=== PATIENT | female | born 1970 | race Caucasian/White ===

== ENCOUNTER 2016-10-18 08:23 | Emergency (ER) | payer OTHER ==
[~2016-10-18] VITALS: Ht 157.5 cm; Wt 126.3 kg
[~2016-10-18 08:23] MED LIST: CARVEDILOL3.125 M1 PO; HYDROCHLOROTHIA25 MG PO; LORAZEPAM0.5 MG PO; LOVASTATIN20 MG PO; METOPROLOL TART25 M1 PO; PRI20 PO; PRILOSEC20 MG PO; RANITIDINE HCL150 M1 PO; ZES10 PO; ZOC10 PO
[2016-10-18 10:22] LABS: UA SPECIFIC GRAVITY >=1.030 (1.005-1.035); microscopic required? YES; urine erythrocyte TRACE (NEGATIVE)
[2016-10-18 10:29] LABS: BASOPHIL % 0.4 % (0-2); PLATELET COUNT 310 x10^3mcL (130-400); RED CELL DISTRIBUTION WIDTH 14.1 % (11.5-14.5)
[2016-10-18 10:36] LABS: CALCIUM 8.7 mg/dL (8.5-10.1); CARBON DIOXIDE 27.6 mmol/L (21-32); CHLORIDE SERUM 103 mmol/L (98-107); GFR1 > 60 mL/min; GLUCOSE SERUM 88 mg/dL (74-106); SODIUM SERUM 135 mmol/L (136-145)
[2016-10-18 10:41] LABS: ALKALINE PHOSPHATASE 119 U/L (46-116); ALT/SGPT 21 U/L (14-59); AST/SGOT 18 U/L (15-37); BILIRUBIN TOTAL 0.3 mg/dL (0.20-1.00); TOTAL PROTEIN, SERUM 7.4 g/dL (6.4-8.2)
[2016-10-18 10:44] LABS: ALBUMIN 3.1 g/dL (3.4-5.0)
[2016-10-18 12:15] VITALS: BP 135/84
== END 2016-10-18 12:15 | disposition home or self-care (01) ==
LOC: ED 08:23
PROVIDERS: Emergency Medicine
DX: R11.10 Vomiting, unspecified (principal); R19.7 Diarrhea, unspecified; E11.9 Type 2 diabetes mellitus without complications; I10 Essential (primary) hypertension; E66.01 Morbid (severe) obesity due to excess calories; K43.9 Ventral hernia without obstruction or gangrene; E78.5 Hyperlipidemia, unspecified; M19.90 Unspecified osteoarthritis, unspecified site; J45.909 Unspecified asthma, uncomplicated; Z98.51 Tubal ligation status; Z88.0 Allergy status to penicillin; Z88.5 Allergy status to narcotic agent
CPT/HCPCS: 83880; J2270; J2405; J7030; Q0092

== ENCOUNTER 2017-08-27 10:05 | Emergency (ER) | payer OTHER ==
[~2017-08-27] VITALS: Ht 167.6 cm; Wt 130.6 kg
[2017-08-27 10:14] VITALS: Ht 167.6 cm; Wt 130.6 kg
[2017-08-27 11:19] VITALS: BP 130/74
[2017-08-27 11:23] LABS: CALCIUM 8.7 mg/dL (8.5-10.1); CARBON DIOXIDE 27.3 mmol/L (21-32); CHLORIDE SERUM 103 mmol/L (98-107); GFR1 > 60 mL/min; GLUCOSE SERUM 110 mg/dL (74-106); POTASSIUM SERUM 3.5 mmol/L (3.5-5.1); SODIUM SERUM 138 mmol/L (136-145)
== END 2017-08-27 11:56 | disposition home or self-care (01) ==
LOC: ED 10:05
PROVIDERS: Emergency Medicine
DX: K52.9 Noninfective gastroenteritis and colitis, unspecified (principal); I10 Essential (primary) hypertension; E11.9 Type 2 diabetes mellitus without complications; J45.909 Unspecified asthma, uncomplicated; E78.00 Pure hypercholesterolemia, unspecified; M19.90 Unspecified osteoarthritis, unspecified site; Z88.0 Allergy status to penicillin; Z88.5 Allergy status to narcotic agent; Z88.6 Allergy status to analgesic agent
CPT/HCPCS: J1885; Q0162

== ENCOUNTER 2018-01-23 06:48 | Inpatient (IN) | payer OTHER ==
[~2018-01-23] VITALS: Ht 157.5 cm; Wt 118.5 kg
[2018-01-23 06:54] VITALS: Ht 157.5 cm; Wt 118.5 kg
[2018-01-23 07:51] LABS: UA SPECIFIC GRAVITY 1.025 (1.005-1.035); microscopic required? YES; urine erythrocyte NEGATIVE (NEGATIVE)
[2018-01-23 08:08] LABS: BASOPHIL % 0.5 % (0-2); PLATELET COUNT 314 x10^3mcL (130-400)
[2018-01-23 08:27] LABS: CALCIUM 8.6 mg/dL (8.5-10.1); CARBON DIOXIDE 25.3 mmol/L (21-32); CHLORIDE SERUM 105 mmol/L (98-107); CREATININE SERUM 0.9 mg/dL (0.6-1.0); GFR1 > 60 mL/min; GLUCOSE SERUM 108 mg/dL (74-106); POTASSIUM SERUM 4.1 mmol/L (3.5-5.1); SODIUM SERUM 138 mmol/L (136-145)
[2018-01-23 08:32] LABS: ALBUMIN 3.3 g/dL (3.4-5.0); ALKALINE PHOSPHATASE 102 U/L (46-116); ALT/SGPT 21 U/L (14-59); AST/SGOT 21 U/L (15-37); BILIRUBIN TOTAL 0.36 mg/dL (0.20-1.00); TOTAL PROTEIN, SERUM 7.4 g/dL (6.4-8.2)
[2018-01-23] MEDS ORDERED: SYNTHROID0.112 MG PO (09:01)
[2018-01-23] MEDS ORDERED: NEURONTIN100 MG PO (09:04)
[2018-01-23] MEDS ORDERED: GOOD SENSE ASPI81 M3 PO (09:05)
[2018-01-23] MEDS ORDERED: LOMOTIL1 TAB PO (09:06)
[2018-01-23] MEDS ORDERED: GOOD SENSE OMEP20 MG PO (09:07)
[2018-01-23] MEDS ORDERED: CARVEDILOL3.125 M1 PO (09:08)
[2018-01-23] MEDS ORDERED: GOOD NEIGHBOR150 M1 PO (09:09)
[2018-01-23 09:10] LABS: FREE T4 0.85 ng/dL (0.76-1.46)
[2018-01-23] MEDS ORDERED: VITAMIN-D1000 IU PO (09:11)
[2018-01-23] MEDS ORDERED: SIMVASTATIN40 M1 PO (09:11)
[2018-01-23] MEDS ORDERED: LORAZEPAM0.5 MG PO (09:13)
[2018-01-23] MEDS ORDERED: QVAR REDIHALE10.6 G1 (09:14)
[2018-01-23] MEDS ORDERED: TOPAMAX25 MG PO (09:14)
[2018-01-23 10:01] VITALS: BP 140/107
[2018-01-23 11:38] LABS: MAGNESIUM 1.9 mg/dL (1.8-2.4); PHOSPHOROUS 3.6 mg/dL (2.5-4.9)
[2018-01-23 11:49] LABS: FREE T4 0.88 ng/dL (0.76-1.46); FREE THYROXINE INDEX 2.5 ug/dL (1.4-4.5); T4(THYROXINE) 7.6 ug/dL (4.7-13.3)
[2018-01-23 11:50] LABS: T3 TOTAL 1.13 ng/mL
[2018-01-23 12:10] VITALS: BP 107/44
[2018-01-23 12:57] LABS: AMPHETAMINE QUAL UR NONE DETECTED (See below)
[2018-01-23] MEDS ORDERED: JANUMET 50-1,01 EACH PO (15:13)
[2018-01-23 15:41] VITALS: BP 93/54
[2018-01-23 17:47] VITALS: BP 141/71
[2018-01-23 21:01] VITALS: BP 150/74
[2018-01-24 04:57] VITALS: BP 139/68
[2018-01-24 05:59] LABS: CHOLESTEROL/HDL RATIO 4.1
[2018-01-24 11:05] LABS: BASOPHIL % 0.6 % (0-2); PLATELET COUNT 303 x10^3mcL (130-400); RED CELL DISTRIBUTION WIDTH 14.5 % (11.5-14.5)
[2018-01-24 11:22] LABS: ALKALINE PHOSPHATASE 103 U/L (46-116); ALT/SGPT 20 U/L (14-59); AST/SGOT 21 U/L (15-37); BILIRUBIN TOTAL 0.37 mg/dL (0.20-1.00); CALCIUM 9.1 mg/dL (8.5-10.1); CARBON DIOXIDE 26.5 mmol/L (21-32); CHLORIDE SERUM 103 mmol/L (98-107); CREATININE SERUM 0.9 mg/dL (0.6-1.0); GFR1 > 60 mL/min; GLUCOSE SERUM 98 mg/dL (74-106); POTASSIUM SERUM 3.9 mmol/L (3.5-5.1); SODIUM SERUM 137 mmol/L (136-145); TOTAL PROTEIN, SERUM 7.9 g/dL (6.4-8.2)
[2018-01-24 11:23] LABS: ALBUMIN 3.2 g/dL (3.4-5.0)
[2018-01-24 12:39] VITALS: BP 162/93
[2018-01-24 15:33] VITALS: BP 119/69
[2018-01-24 17:05] VITALS: BP 119/69
== END 2018-01-24 18:23 | disposition short-term general hospital (02) | DRG 198 ==
LOC: ED 06:48 → DU 08:04 → IC 08:04 → DU 17:22 → IC 01-24 11:32
PROVIDERS: Emergency Medicine; Internal Medicine
DX: I24.9 Acute ischemic heart disease, unspecified (principal); E11.42 Type 2 diabetes mellitus with diabetic polyneuropathy; E03.9 Hypothyroidism, unspecified; I10 Essential (primary) hypertension; E11.65 Type 2 diabetes mellitus with hyperglycemia; E44.1 Mild protein-calorie malnutrition; E78.00 Pure hypercholesterolemia, unspecified; F41.9 Anxiety disorder, unspecified; N30.90 Cystitis, unspecified without hematuria; F32.9 Major depressive disorder, single episode, unspecified; I35.0 Nonrheumatic aortic (valve) stenosis; E66.01 Morbid (severe) obesity due to excess calories; J45.909 Unspecified asthma, uncomplicated; Z88.0 Allergy status to penicillin; Z88.6 Allergy status to analgesic agent; Z88.1 Allergy status to other antibiotic agents; Z88.8 Allergy status to other drugs, medicaments and biological substances; Z83.3 Family history of diabetes mellitus; Z82.49 Family history of ischemic heart disease and other diseases of the circulatory system; Z68.42 Body mass index [BMI] 45.0-49.9, adult; Z98.51 Tubal ligation status
CPT/HCPCS: 83880; 84439; A9500; J0696; J1327; J1644; J2405; J2785; J3010; J3490; J7030; Q0092

== ENCOUNTER 2018-03-15 15:01 | Emergency (ER) | payer OTHER ==
[~2018-03-15] VITALS: Ht 157.5 cm; Wt 117.9 kg
[~2018-03-15 15:01] MED LIST changes: +GOOD NEIGHBOR150 M1 PO; +GOOD SENSE ASPI81 M3 PO; +GOOD SENSE OMEP20 MG PO; +JANUMET 50-1,01 EACH PO; +LOMOTIL1 TAB PO; +NEURONTIN100 MG PO; +QVAR REDIHALE10.6 G1; +SIMVASTATIN40 M1 PO; +SYNTHROID0.112 MG PO; +TOPAMAX25 MG PO; +VITAMIN-D1000 IU PO
[2018-03-15 15:19] VITALS: Ht 157.5 cm; Wt 117.9 kg
[2018-03-15 16:58] LABS: CALCIUM 9.1 mg/dL (8.5-10.1); CARBON DIOXIDE 27.1 mmol/L (21-32); CHLORIDE SERUM 102 mmol/L (98-107); GFR1 > 60 mL/min; GLUCOSE SERUM 95 mg/dL (74-106); SODIUM SERUM 137 mmol/L (136-145)
[2018-03-15 17:02] LABS: BASOPHIL % 0.9 % (0-2); PLATELET COUNT 361 x10^3mcL (130-400)
[2018-03-15 17:04] LABS: ALBUMIN 3.4 g/dL (3.4-5.0); ALKALINE PHOSPHATASE 126 U/L (46-116); ALT/SGPT 13 U/L (14-59); AST/SGOT 18 U/L (15-37); BILIRUBIN TOTAL 0.31 mg/dL (0.20-1.00); LIPASE 132 IU/L (73-393)
[2018-03-15 18:42] VITALS: BP 142/60
== END 2018-03-15 18:42 | disposition home or self-care (01) ==
LOC: ED 15:01
PROVIDERS: Emergency Medicine
DX: K59.00 Constipation, unspecified (principal); J45.909 Unspecified asthma, uncomplicated; I10 Essential (primary) hypertension; E11.9 Type 2 diabetes mellitus without complications; E78.00 Pure hypercholesterolemia, unspecified; E03.9 Hypothyroidism, unspecified; M19.90 Unspecified osteoarthritis, unspecified site; Z88.0 Allergy status to penicillin; Z88.6 Allergy status to analgesic agent
CPT/HCPCS: 36415; Q9967

== ENCOUNTER 2018-10-23 16:18 | Inpatient (IN) | payer OTHER ==
[~2018-10-23] VITALS: Ht 157.5 cm; Wt 122.0 kg
[2018-10-23 16:28] VITALS: Ht 157.5 cm; Wt 122.0 kg
[2018-10-23] MEDS ORDERED: GOOD SENSE ASPI81 M3 (16:47)
[2018-10-23] MEDS ORDERED: CARVEDILOL3.125 M1 (16:47)
[2018-10-23] MEDS ORDERED: LEVOTHYROXIN0.025 M2 (16:48)
[2018-10-23] MEDS ORDERED: LOMOTIL1 TAB (16:48)
[2018-10-23] MEDS ORDERED: GABAPENTIN100 M2 (16:48)
[2018-10-23] MEDS ORDERED: ALBUTEROL0.63 MG/3 (16:49)
[2018-10-23] MEDS ORDERED: ENFAMIL D-V400 IU/ML (16:49)
[2018-10-23] MEDS ORDERED: METFORMIN HYDR500 M1 (16:49)
[2018-10-23] MEDS ORDERED: VENTOLIN H0.09 MG/A1 (16:49)
[2018-10-23] MEDS ORDERED: LORAZEPAM0.5 MG (16:49)
[2018-10-23] MEDS ORDERED: NITROGLYCERIN0.4 MG (16:50)
[2018-10-23 17:13] LABS: BASOPHIL % 0.6 % (0-2); PLATELET COUNT 293 x10^3mcL (130-400); RED CELL DISTRIBUTION WIDTH 13.7 % (11.5-14.5)
[2018-10-23 17:16] LABS: CARBON DIOXIDE 29.9 mmol/L (21-32); CREATININE SERUM 1.1 mg/dL (0.6-1.0); POTASSIUM SERUM 3.8 mmol/L (3.5-5.1)
[2018-10-23 17:21] LABS: ALBUMIN 3.1 g/dL (3.4-5.0); BILIRUBIN TOTAL 0.19 mg/dL (0.20-1.00); TOTAL PROTEIN, SERUM 7.3 g/dL (6.4-8.2)
[2018-10-23 19:08] LABS: CHOLESTEROL/HDL RATIO 3.7; MAGNESIUM 1.7 mg/dL (1.8-2.4); PHOSPHOROUS 4.5 mg/dL (2.5-4.9)
[2018-10-23 19:28] VITALS: BP 133/65
[2018-10-23 20:52] VITALS: BP 108/56
[2018-10-24 05:24] VITALS: BP 105/64
[2018-10-24 06:56] LABS: BASOPHIL % 0.7 % (0-2); PLATELET COUNT 267 x10^3mcL (130-400); RED CELL DISTRIBUTION WIDTH 13.9 % (11.5-14.5)
[2018-10-24 07:10] LABS: CHLORIDE SERUM 102 mmol/L (98-107); GFR1 > 60 mL/min; GLUCOSE SERUM 109 mg/dL (74-106); POTASSIUM SERUM 3.8 mmol/L (3.5-5.1); SODIUM SERUM 137 mmol/L (136-145)
[2018-10-24 08:17] VITALS: BP 104/63
[2018-10-24 11:40] VITALS: BP 114/61
[2018-10-24 16:12] VITALS: BP 118/75
[2018-10-24 16:35] VITALS: BP 118/75
[2018-10-24 20:52] LABS: microscopic required? YES; urine erythrocyte NEGATIVE (NEGATIVE)
[2018-10-24 21:04] LABS: AMPHETAMINE QUAL UR NONE DETECTED (See below)
== END 2018-10-24 18:13 | disposition home or self-care (01) | DRG 198 ==
LOC: ED 16:18 → DU 18:22 → MU 10-24 16:23
PROVIDERS: Emergency Medicine; ADMIT Internal Medicine
DX: I25.119 Atherosclerotic heart disease of native coronary artery with unspecified angina pectoris (principal); E44.1 Mild protein-calorie malnutrition; E66.01 Morbid (severe) obesity due to excess calories; Z68.42 Body mass index [BMI] 45.0-49.9, adult; E83.42 Hypomagnesemia; I10 Essential (primary) hypertension; E78.5 Hyperlipidemia, unspecified; E03.9 Hypothyroidism, unspecified; E78.00 Pure hypercholesterolemia, unspecified; M19.90 Unspecified osteoarthritis, unspecified site; K21.9 Gastro-esophageal reflux disease without esophagitis; I44.7 Left bundle-branch block, unspecified; E11.9 Type 2 diabetes mellitus without complications; J45.909 Unspecified asthma, uncomplicated; Z79.82 Long term (current) use of aspirin; Z79.84 Long term (current) use of oral hypoglycemic drugs; Z88.6 Allergy status to analgesic agent; Z88.0 Allergy status to penicillin; Z88.8 Allergy status to other drugs, medicaments and biological substances; Z88.5 Allergy status to narcotic agent; Z98.51 Tubal ligation status; Z82.49 Family history of ischemic heart disease and other diseases of the circulatory system; Z83.3 Family history of diabetes mellitus
CPT/HCPCS: 82962; 83880; J2270; J2405; Q0092

== ENCOUNTER 2018-10-30 18:20 | Emergency (ER) | payer OTHER ==
[~2018-10-30] VITALS: Ht 157.5 cm; Wt 117.6 kg
[~2018-10-30 18:20] MED LIST changes: +ALBUTEROL0.63 MG/3; +CARVEDILOL3.125 M1; +ENFAMIL D-V400 IU/ML; +GABAPENTIN100 M2; +GOOD SENSE ASPI81 M3; +LEVOTHYROXIN0.025 M2; +LOMOTIL1 TAB; +LORAZEPAM0.5 MG; +METFORMIN HYDR500 M1; +NITROGLYCERIN0.4 MG; +VENTOLIN H0.09 MG/A1
[2018-10-30 18:28] VITALS: Ht 157.5 cm; Wt 117.6 kg
[2018-10-30 20:32] VITALS: BP 117/68
== END 2018-10-30 20:32 | disposition home or self-care (01) ==
LOC: ED 18:20
DX: K59.00 Constipation, unspecified (principal); J45.909 Unspecified asthma, uncomplicated; I10 Essential (primary) hypertension; E11.9 Type 2 diabetes mellitus without complications; E78.00 Pure hypercholesterolemia, unspecified; E03.9 Hypothyroidism, unspecified; M19.90 Unspecified osteoarthritis, unspecified site; Z98.51 Tubal ligation status; Z88.5 Allergy status to narcotic agent; Z88.8 Allergy status to other drugs, medicaments and biological substances
CPT/HCPCS: J1885

== ENCOUNTER 2019-05-12 10:45 | Inpatient (IN) | payer OTHER ==
[~2019-05-12] VITALS: Ht 157.5 cm; Wt 118.8 kg
[2019-05-12 11:24] LABS: BASOPHIL % 0.9 % (0-2); PLATELET COUNT 295 x10^3mcL (130-400); RED CELL DISTRIBUTION WIDTH 13.9 % (11.5-14.5)
[2019-05-12 13:26] LABS: CALCIUM 8.7 mg/dL (8.5-10.1); CARBON DIOXIDE 24.6 mmol/L (21-32); CHLORIDE SERUM 106 mmol/L (98-107); GFR1 > 60 mL/min; GLUCOSE SERUM 100 mg/dL (74-106); POTASSIUM SERUM 3.8 mmol/L (3.5-5.1); SODIUM SERUM 143 mmol/L (136-145)
[2019-05-12 13:31] LABS: ALKALINE PHOSPHATASE 113 U/L (46-116); ALT/SGPT 16 U/L (14-59); AST/SGOT 18 U/L (15-37); BILIRUBIN TOTAL 0.4 mg/dL (0.20-1.00); TOTAL PROTEIN, SERUM 7.7 g/dL (6.4-8.2)
[2019-05-12 13:48] LABS: ALBUMIN 3.2 g/dL (3.4-5.0)
[2019-05-12] MEDS ORDERED: ESCITALOPRAM20 M1 PO (14:16)
[2019-05-12] MEDS ORDERED: HYDROCHLOROTHIA25 MG PO (14:17)
[2019-05-12] MEDS ORDERED: DOK COLACE100 MG PO (14:17)
[2019-05-12] MEDS ORDERED: METFORMIN HYD1000 M2 PO (14:17)
[2019-05-12] MEDS ORDERED: LOSARTAN POTASS50 M1 PO (14:17)
[2019-05-12] MEDS ORDERED: NITROGLYCERIN0.4 MG SL (14:17)
[2019-05-12] MEDS ORDERED: OMEPRAZOLE40 M1 PO (14:17)
[2019-05-12] MEDS ORDERED: [UNRECOGNIZED DRUG - CODE] PO (14:18)
[2019-05-12] MEDS ORDERED: LEVOTHYROXIN0.125 M2 PO (14:18)
[2019-05-12] MEDS ORDERED: SIMVASTATIN40 M1 PO (14:18)
[2019-05-12] MEDS ORDERED: DSS250 MG PO (14:18)
[2019-05-12] MEDS ORDERED: CARVEDILOL3.125 M1 PO (14:19)
[2019-05-12] MEDS ORDERED: CLEOCIN HCL300 MG PO (14:20)
[2019-05-12 15:02] LABS: CHOLESTEROL/HDL RATIO 3.7; MAGNESIUM 1.9 mg/dL (1.8-2.4)
[2019-05-12 17:16] LABS: FREE T4 0.94 ng/dL (0.76-1.46); FREE THYROXINE INDEX 2.7 ug/dL (1.4-4.5); T3 TOTAL 1.25 ng/mL; T4(THYROXINE) 7.8 ug/dL (4.7-13.3)
[2019-05-12 17:20] VITALS: BP 140/78
[2019-05-12 17:25] VITALS: BP 149/80
[2019-05-12 21:00] VITALS: BP 129/83
[2019-05-12 23:00] LABS: microscopic required? YES; urine erythrocyte TRACE (NEGATIVE)
[2019-05-12 23:09] LABS: AMPHETAMINE QUAL UR NONE DETECTED (See below)
[2019-05-13 05:05] VITALS: BP 104/55
[2019-05-13 06:22] LABS: BASOPHIL % 0.1 % (0-2); PLATELET COUNT 322 x10^3mcL (130-400); RED CELL DISTRIBUTION WIDTH 14.4 % (11.5-14.5)
[2019-05-13 06:32] LABS: CALCIUM 8.9 mg/dL (8.5-10.1); CARBON DIOXIDE 23.4 mmol/L (21-32); CHLORIDE SERUM 104 mmol/L (98-107); GFR1 > 60 mL/min; GLUCOSE SERUM 146 mg/dL (74-106); MAGNESIUM 1.8 mg/dL (1.8-2.4); PHOSPHOROUS 2.9 mg/dL (2.5-4.9); SODIUM SERUM 137 mmol/L (136-145)
[2019-05-13 09:32] VITALS: BP 129/60
[2019-05-13 13:23] VITALS: BP 125/47
[2019-05-13 16:28] VITALS: BP 131/55
[2019-05-13 21:15] VITALS: BP 148/53
[2019-05-14 05:42] VITALS: BP 132/52
[2019-05-14 06:18] LABS: PLATELET COUNT 322 x10^3mcL (130-400)
[2019-05-14 06:37] LABS: CALCIUM 8.8 mg/dL (8.5-10.1); CARBON DIOXIDE 26.1 mmol/L (21-32); CHLORIDE SERUM 105 mmol/L (98-107); CREATININE SERUM 0.9 mg/dL (0.6-1.0); GFR1 > 60 mL/min; GLUCOSE SERUM 165 mg/dL (74-106); MAGNESIUM 1.9 mg/dL (1.8-2.4); PHOSPHOROUS 2.9 mg/dL (2.5-4.9); POTASSIUM SERUM 4.4 mmol/L (3.5-5.1); SODIUM SERUM 139 mmol/L (136-145)
[2019-05-14 06:45] LABS: BASOPHIL % 0 % (0-2); RED CELL DISTRIBUTION WIDTH 14.8 % (11.5-14.5)
[2019-05-14 09:55] VITALS: BP 140/53
[2019-05-14 14:37] VITALS: BP 142/50
[2019-05-14 16:58] VITALS: BP 152/63
[2019-05-14 21:26] VITALS: BP 120/54
[2019-05-15 05:27] VITALS: BP 117/45
[2019-05-15 06:16] LABS: BASOPHIL % 0.1 % (0-2); PLATELET COUNT 315 x10^3mcL (130-400)
[2019-05-15 06:44] LABS: CALCIUM 8.9 mg/dL (8.5-10.1); CARBON DIOXIDE 22.9 mmol/L (21-32); CHLORIDE SERUM 104 mmol/L (98-107); CREATININE SERUM 0.9 mg/dL (0.6-1.0); GFR1 > 60 mL/min; GLUCOSE SERUM 156 mg/dL (74-106); POTASSIUM SERUM 3.8 mmol/L (3.5-5.1); SODIUM SERUM 139 mmol/L (136-145)
[2019-05-15 07:04] LABS: RED CELL DISTRIBUTION WIDTH 14.6 % (11.5-14.5)
[2019-05-15 08:27] VITALS: BP 119/59
[2019-05-15] MEDS ORDERED: IMD60 PO (10:47)
[2019-05-15] MEDS ORDERED: LIPI20 PO (10:48)
[2019-05-15] MEDS ORDERED: COR3 PO (10:49)
[2019-05-15] MEDS ORDERED: COZ50 PO (10:50)
[2019-05-15 12:14] VITALS: BP 122/68
[2019-05-15 15:08] VITALS: BP 122/68
== END 2019-05-15 17:40 | disposition home health service (06) | DRG 203 ==
LOC: ED 10:45 → DU 14:29
PROVIDERS: Emergency Medicine; ADMIT Internal Medicine
DX: M94.0 Chondrocostal junction syndrome [Tietze] (principal); E11.42 Type 2 diabetes mellitus with diabetic polyneuropathy; E44.1 Mild protein-calorie malnutrition; E03.9 Hypothyroidism, unspecified; I10 Essential (primary) hypertension; E78.5 Hyperlipidemia, unspecified; E78.00 Pure hypercholesterolemia, unspecified; M19.90 Unspecified osteoarthritis, unspecified site; F32.9 Major depressive disorder, single episode, unspecified; F41.9 Anxiety disorder, unspecified; J44.1 Chronic obstructive pulmonary disease with (acute) exacerbation; I25.10 Atherosclerotic heart disease of native coronary artery without angina pectoris; G43.909 Migraine, unspecified, not intractable, without status migrainosus; Z79.84 Long term (current) use of oral hypoglycemic drugs; Z88.0 Allergy status to penicillin; Z88.5 Allergy status to narcotic agent; Z98.51 Tubal ligation status; Z83.3 Family history of diabetes mellitus; Z82.49 Family history of ischemic heart disease and other diseases of the circulatory system; Z23 Encounter for immunization; Z79.899 Other long term (current) drug therapy
CPT/HCPCS: 36600; 82962; 83880; 84439; 87804; 90732; 97116-GP; 97530-GP; G0378; J0456; J1644; J1650; J1885; J1956; J2920; J2930; J3490; J7030; J7620; Q0092; Q9967

== ENCOUNTER 2020-02-21 04:59 | Inpatient (IN) | payer OTHER, SELFPAY ==
[~2020-02-21] VITALS: Ht 157.5 cm; Wt 124.7 kg
[~2020-02-21 04:59] MED LIST changes: +CLEOCIN HCL300 MG PO; +COR3 PO; +COZ50 PO; +DOK COLACE100 MG PO; +DSS250 MG PO; +ESCITALOPRAM20 M1 PO; +IMD60 PO; +LEVOTHYROXIN0.125 M2 PO; +LIPI20 PO; +LOSARTAN POTASS50 M1 PO; +METFORMIN HYD1000 M2 PO; +NITROGLYCERIN0.4 MG SL; +OMEPRAZOLE40 M1 PO; +[UNRECOGNIZED DRUG - CODE] PO
[2020-02-21 05:00] VITALS: Ht 157.5 cm; Wt 124.7 kg
--- NOTE | 2020-02-21 05:04 | NUR ---
EKG IN PROGRESS.
--- NOTE | 2020-02-21 05:46 | NUR ---
ASSUMED CARE OF CLIENT AT THIS TIME WITH C/O CHEST PAIN TO RIGHT SIDE OF CHEST WITH C/O RIGHT LEG NUMB AND THEN MOVED TO LEFT SIDE. ALSO SHORTNESS, NAUSEAWITH VOMITING SMALL AMOUNT AT 1900. 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
--- NOTE | 2020-02-21 06:31 | NUR ---
MEDICATED WITH FIRST DOSE OF NITRO. 0.4 SL AT 0050 B/P PRIOR TO DOSING 122/59-68-20-97%2LVIA NC. RECHECKED B/P AT 0555 B/P 107/58(70) MAP INFORMED PHYSICIAN THAT BLOOD PRESSURE IS TOO LOW FOR SECOD DOSE OF NITRO. 0.4SL RATES PAIN 9/10. AT 0612 SECOND DOSE OF NITRO. 0.4 SL B/P PRIOR TO NITRO. 165/60 (90) [id number]-[id number]% ON 2L VIA NC. RATES BROWN 10. B/P RIOR TO THIRD DOSE OF NITRO. 0.4 SL 158/83-16-68-96% VIA 2L NC. AWAITS MD FOR FURTHER EVALUATION
--- NOTE | 2020-02-21 07:49 | NUR ---
PT STS FEELS BETTER
[2020-02-21 08:10] LABS: CALCIUM 8.5 mg/dL (8.5-10.1); CARBON DIOXIDE 25.9 mmol/L (21-32); CREATININE SERUM 1.1 mg/dL (0.6-1.0); POTASSIUM SERUM 4.2 mmol/L (3.5-5.1)
[2020-02-21 08:15] LABS: ALBUMIN 3.4 g/dL (3.4-5.0); BILIRUBIN TOTAL 0.4 mg/dL (0.20-1.00); TOTAL PROTEIN, SERUM 7.6 g/dL (6.4-8.2)
[2020-02-21 08:28] LABS: BASOPHIL % 0.7 % (0-2); PLATELET COUNT 276 x10^3mcL (130-400); RED CELL DISTRIBUTION WIDTH 14.4 % (11.5-14.5)
--- NOTE | 2020-02-21 08:40 | NUR ---
PER LAB, COVID RESULT: NEGATIVE
--- NOTE | 2020-02-21 09:40 | NUR ---
DR HOLCOMB AT BEDSIDE TO GO OVER PLAN OF CARE
--- NOTE | 2020-02-21 10:37 | NUR ---
PT ADMIT TO TELE ROOM 238B GAVE REPORT TO NATHAN
[2020-02-21 11:15] VITALS: BP 127/72
--- NOTE | 2020-02-21 11:29 | NUR ---
RECIEVED PATIENT FROM EMERGENCY ROOM NURSE. PATIENT PLACED ON TELEMETRY MONITORING TELE NUMBER 2. PATIENT IS AWAKE ALERT AND ORIENTED X 3. PATIENT IS CONFUSED AT TIMES AND FORGETFUL. PATIENT IS ORIENTED TO PERSON PLACE AND REASON FOR STAY. ADMISSION HISTORY OBTAINED FROM PATIENT. I ATTEMPTED TO CONTACT POC SON SERENA QUIÑONES WHO WOULD NOT ANSWER THE PHONE NUMBERS WE HAVE ON FILE FOR HIM. IV IS CURRENTLY THE RAC AND IS SALINE LOCKED. WILL CONTINUE TO PROVIDE ALL FURTHER CARE FOR PATIENT.
[2020-02-21 16:25] VITALS: BP 106/57
--- NOTE | 2020-02-21 18:16 | NUR ---
PATIENT CURRENTLY OBSERVED RESTIN IN BED. RESPIRATIONS EQUAL AND UNLABORED WITH SYMMETRICAL CHEST RISE AND FALL. IV TO RAC CURRENTLY INFUSING NS AT 30cc/HOUR. PATIENT IS CURRENTLY PENDING CARDIAC CONSULT. NO REPORT OF CHEST PAIN AT THIS TIME. WILL ENDORSE ALL FURTHER CARE TO NOC NURSE.
--- NOTE | 2020-02-21 20:00 | NUR ---
PT A/A/O X4, FORGETFULL AT TIMES. DENIES DIZZNESS AND HEADACHE. BREATH SOUNDS CLEAR. BREATHING EVEN AND UNLABORED ON ROOM AIR. DENIES CHEST PAIN AND PRESSURE THUS FAR. BOWEL SOUNDS ACTIVE. NO C/O N/V AND ABD PAIN. IV INTACT ON THE RAC INFUSING WITH NS AT 30 ML/HR. MADE PT COMFORTABLE PLACED CALL LIGHT WITH IN REACH. WILL CONTINUE TO MONITOR.
[2020-02-21 21:07] VITALS: BP 107/50
--- NOTE | 2020-02-22 01:02 | NUR ---
PT RESTING WITH EYES CLOSED. NO DISTRESS AND DISCOMFORT NOTED. WILL CONTINUE TO MONITOR.
--- NOTE | 2020-02-22 02:47 | NUR ---
PT C/O BURNING ON THE RIGHT EYE. RIGHT EYE NOTICED TO BE RED. PT ALSO C/O THROAT PAIN WHEN SWALLOWING. DR. GOTTLIEB NOTIFIED. WILL CONTINUE TO MONITOR.
--- NOTE | 2020-02-22 04:00 | NUR ---
GAVE PT CEPACOL PO FOR SORE THROAT. PT TOLERATED IT WELL. PT DENIES NEED FOR WARM COMPRESS FOR THE EYES THUS FAR. MADE PT COMFORTABLE. WILL CONTINUE TO MONITOR.
[2020-02-22 05:35] VITALS: BP 108/69
--- NOTE | 2020-02-22 06:09 | NUR ---
PT DENIES BURNING ON THE RIGHT EYE. REDNESS NOTICED TO LESSENED ON THE RIGHT EYE. PT ADMITS TO HAVE SORE THROAT. DENIES NEED FOR MEDICATION THUS FAR. MADE PT COMFORTABLE. WILL ENDORSE TO THE AM NURSE ACCORDINGLY.
--- NOTE | 2020-02-22 07:30 | NUR ---
RECEIVED PT FROM PM NURSE. PT AWAKE AND RESTING COMFORTABLY AT THIS TIME. NO FACIAL DISTRESS OR SOB NOTED. PT IS A/OX4. FORGETFUL. DENIES MOHR/DIZZINESS. LUNG SOUNDS CTA. BREATHING E/U ON 2L NC. TELE #2. NSR. DENIES CP AT THIS TIME. PALPABLE PULSES. NO EDEMA NOTED. ACTIVE BSX4. ABD SOFT AND ROUND. DENIES N/V/D. VOIDS FREELY. GENERALIZED WEAKNESS. SKIN INTACT. C/O SORE THROAT. WILL MEDICATE PER EMAR. IV TO RAC CURRENTLY INFUSING NS AT 30ML/HR. BED AT LOWEST POSITION. CALL BUTTON WITHIN REACH. WILL CONTINUE TO MONITOR.
[2020-02-22 08:40] VITALS: BP 121/69
[2020-02-22 12:15] VITALS: BP 128/76
[2020-02-22] MEDS ORDERED: COZAAR25 M1 PO (15:56)
[2020-02-22 15:58] VITALS: BP 128/76
--- NOTE | 2020-02-22 17:02 | NUR ---
DISCHARGE INFORMATION REVIEWED WITH PATIENT. PATIENT VERBALIZED UNDERSTANDING. IV REMOVED. CATHETER INTACT. SITE HELD DOWN FOR FIVE MINUTES. NO ADDITIONAL BLEEDING NOTED. PATIENT LEFT HOSPITAL IN STABLE CONDITION TO SELF HOME CARE.
== END 2020-02-22 17:00 | disposition home or self-care (01) | DRG 203 ==
LOC: ED 04:59 → DU 09:24
PROVIDERS: Emergency Medicine; ADMIT Internal Medicine; ATTEND Internal Medicine
DX: R07.89 Other chest pain (principal); N17.0 Acute kidney failure with tubular necrosis; I10 Essential (primary) hypertension; E03.9 Hypothyroidism, unspecified; E11.9 Type 2 diabetes mellitus without complications; E78.5 Hyperlipidemia, unspecified; E78.00 Pure hypercholesterolemia, unspecified; M19.90 Unspecified osteoarthritis, unspecified site; F41.9 Anxiety disorder, unspecified; F32.9 Major depressive disorder, single episode, unspecified; Z83.3 Family history of diabetes mellitus; Z82.49 Family history of ischemic heart disease and other diseases of the circulatory system; J45.909 Unspecified asthma, uncomplicated; E11.40 Type 2 diabetes mellitus with diabetic neuropathy, unspecified; I35.0 Nonrheumatic aortic (valve) stenosis; Z20.828 Contact with and (suspected) exposure to other viral communicable diseases
CPT/HCPCS: 82962; 83880; C9113; G0378; J2405; J3490; J7030; Q0092

== ENCOUNTER 2020-03-16 08:32 | Observation (INO) | payer OTHER ==
[~2020-03-16] VITALS: Ht 157.5 cm; Wt 130.6 kg
[~2020-03-16 08:32] MED LIST changes: +COZAAR25 M1 PO
[2020-03-16 08:37] VITALS: Ht 157.5 cm; Wt 130.6 kg
[2020-03-16 09:38] LABS: BASOPHIL % 0.5 % (0-2); PLATELET COUNT 291 x10^3mcL (130-400); RED CELL DISTRIBUTION WIDTH 14.2 % (11.5-14.5)
[2020-03-16 10:22] LABS: CALCIUM 8.5 mg/dL (8.5-10.1); CARBON DIOXIDE 27.5 mmol/L (21-32); CHLORIDE SERUM 103 mmol/L (98-107); GFR1 > 60 mL/min; GLUCOSE SERUM 132 mg/dL (74-106); POTASSIUM SERUM 3.9 mmol/L (3.5-5.1); SODIUM SERUM 136 mmol/L (136-145)
[2020-03-16 10:26] LABS: ALBUMIN 2.9 g/dL (3.4-5.0); ALKALINE PHOSPHATASE 104 U/L (46-116); ALT/SGPT 14 U/L (14-59); AST/SGOT 14 U/L (15-37); BILIRUBIN TOTAL 0.3 mg/dL (0.20-1.00); TOTAL PROTEIN, SERUM 6.9 g/dL (6.4-8.2)
[2020-03-16 12:23] LABS: AMPHETAMINE QUAL UR NONE DETECTED (See below)
[2020-03-16 13:40] VITALS: BP 114/40
[2020-03-16 16:22] VITALS: BP 116/37
[2020-03-16 19:58] VITALS: BP 112/41
[2020-03-16 21:22] VITALS: BP 120/73
[2020-03-17 05:21] VITALS: BP 116/54
[2020-03-17 07:30] LABS: CALCIUM 8.7 mg/dL (8.5-10.1); CARBON DIOXIDE 26.5 mmol/L (21-32); CHLORIDE SERUM 105 mmol/L (98-107); CREATININE SERUM 0.9 mg/dL (0.6-1.0); GFR1 > 60 mL/min; GLUCOSE SERUM 112 mg/dL (74-106); POTASSIUM SERUM 4.1 mmol/L (3.5-5.1); SODIUM SERUM 138 mmol/L (136-145)
[2020-03-17 07:33] LABS: BASOPHIL % 0.7 % (0-2); PLATELET COUNT 285 x10^3mcL (130-400); RED CELL DISTRIBUTION WIDTH 14.2 % (11.5-14.5)
[2020-03-17 07:57] VITALS: BP 150/61
[2020-03-17 08:25] VITALS: BP 125/49
[2020-03-17 17:08] VITALS: BP 76/36
[2020-03-17] MEDS ORDERED: ATORVASTATIN CA40 M1 PO (17:33)
[2020-03-17] MEDS ORDERED: RAN500A PO (17:33)
[2020-03-17 17:59] VITALS: BP 103/62
[2020-03-17 18:35] VITALS: BP 135/45
== END 2020-03-17 19:34 | disposition home or self-care (01) ==
LOC: ED 08:32 → DU 11:23
PROVIDERS: Emergency Medicine; ADMIT Internal Medicine; ATTEND Internal Medicine
DX: R07.89 Other chest pain (principal); I25.110 Atherosclerotic heart disease of native coronary artery with unstable angina pectoris; I10 Essential (primary) hypertension; E78.5 Hyperlipidemia, unspecified; E03.9 Hypothyroidism, unspecified; E11.9 Type 2 diabetes mellitus without complications; J44.9 Chronic obstructive pulmonary disease, unspecified; Z87.891 Personal history of nicotine dependence
CPT/HCPCS: 82962; 83880; G0378; J1885; J3490; Q0092